=== PATIENT | female | born 1980 | race American Indian/Alaskan Native ===

== ENCOUNTER 2016-05-19 13:59 | Outpatient (CLI) | payer MEDICAID ==
--- NOTE | 2016-05-19 16:08 | Ultrasound Report ---
ULTRASOUND PELVIS COMPLETE - TRANSABDOMINAL AND TRANSVAGINAL: INDICATION: Fibroids, ovarian cyst. COMPARISON: None similar at this institution. FINDINGS: Transabdominal and transvaginal pelvic sonography performed in this patient with LMP of 05/12/2016 demonstrates an anteverted 12.7 x 6.1 x 6.1 cm uterus with an approximately 4.4 x 3.9 x 3.3 cm mid to lower uterine fibroid posteriorly. Endometrial thickness of approximately 1.2 cm toward the fundus, endovaginal image 12. No significant free fluid. Right ovary is 2.9 x 2.2 x 2.1 cm with a 1.6 cm possibly complex/hemorrhagic cyst. Left ovary approximately 3.4 x 3.3 x 4 cm transabdominally. CONCLUSION: Approximately 4.4 cm posterior uterine fibroid and few other incidental findings, as above. Please correlate. Thank you for the opportunity to participate in this patient's care.
--- NOTE | 2016-05-19 16:13 | Ultrasound Report ---
THYROID ULTRASOUND INDICATION: Goiter. COMPARISON: None similar. FINDINGS: Grayscale and color-flow thyroid sonography demonstrates normal contours, echotexture and vascularity without focal lesions. Right thyroid lobe estimated at 5.4 x 1.7 x 1.7 cm. Left thyroid lobe is 5 x 1.4 x 2.1 cm. Isthmus measures 0.3 cm AP. CONCLUSION: Normal thyroid ultrasound, as described. Thank you for the opportunity to participate in this patient's care.
== END 2016-05-19 14:00 | disposition home or self-care (01) ==
LOC: US 13:59
PROVIDERS: ATTEND Internal Medicine
DX: D25.9 Leiomyoma of uterus, unspecified (principal); N83.201 Unspecified ovarian cyst, right side
CPT/HCPCS: 76536; 76830; 76856